=== PATIENT | female | born 1970 | race Caucasian/White ===

== ENCOUNTER 2017-11-17 00:30 | Emergency (ER) | payer BC, OTHER ==
[2017-11-17 00:37] VITALS: BP 120/77; PULSE 63; RESP 16; TEMP 97.9; O2SAT 97
[2017-11-17] MEDS ORDERED: FAMOTIDINE 20 MG TAB PO ONE (00:56)
[2017-11-17] MEDS ORDERED: diphenhydrAMINE 25 MG CAP PO ONE (00:56)
[2017-11-17] MEDS ORDERED: predniSONE 20 MG TAB PO ONE (00:57)
--- NOTE | 2017-11-17 01:01 | EDPHY ---
H & P Time Seen by Provider: 11/17/17 00:42 HPI/ROS: CHIEF COMPLAINT: Pruritic rash HISTORY OF PRESENT ILLNESS: 47-year-old female presents to the emergency department by private vehicle complaining of pruritic rash. She states that started last evening she thinks on her legs which is now since spread to her chest, abdomen and upper extremities. She denies difficulty breathing or swallowing. Denies chest pain. No known exposure to anything. She describes it is as extremely itchy. She did try taking 1 Benadryl when she went to sleep however she was concerned that her rash is getting worse. REVIEW OF SYSTEMS: Constitutional: No fever, no chills. Eyes: No double or blurry vision. ENT: No sore throat. Respiratory: No cough, no shortness of breath. Cardiac: No chest pain. Gastrointestinal: No abdominal pain, vomiting or diarrhea. Genitourinary: No dysuria. Musculoskeletal: No neck or back pain. Skin: As above Neurological: No headache. 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 Eyes: Pupils equal and round. Extraocular motions are all intact. ENT: Mouth: Mucous membranes moist. Respiratory: No wheezing, rhonchi, or rales, lungs are clear to auscultation. Cardiovascular: Regular rate and rhythm. Gastrointestinal: Abdomen is soft and nontender, no masses, no rebound or guarding, bowel sounds normal. Neurological: Alert and oriented x 3, cranial nerves II through XII grossly intact Skin: Erythematous macular papular rash to lower legs, right upper extremity, chest, abdomen and back. no vesicles. Blanches to the touch. Musculoskeletal: Nontender to palpate along the cervical, thoracic or lumbar spine. Neck is supple. Extremities: Full range of motion and no peripheral edema. Psychiatric: Patient is oriented X 3, there is no agitation. Constitutional: Initial Vital Signs Temperature (C) 36.6 C 11/17/17 00:35 Heart Rate 63 11/17/17 00:35 Respiratory Rate 16 11/17/17 00:35 Blood Pressure 120/77 11/17/17 00:35 O2 Sat (%) 97 11/17/17 00:35 O2 Delivery Mode Room Air Allergies/Adverse Reactions: No Known Allergies Allergy (Unverified 11/17/17 00:34) Home Medications: Medication Instructions Recorded Tez 100/50 (*) 11/17/17 predniSONE 60 mg PO DAILY #9 tab 11/17/17 Medical Decision Making ED Course/Re-evaluation: 47-year-old female presents to the emergency department with pruritic rash. Patient was given oral Benadryl, Pepcid, and prednisone. I do not think antibiotics are indicated. No evidence of cellulitis. I do not think this scabies. She was encouraged not to itch the rash. She will return if she develops difficulty breathing or swallowing or any other concerns. Differential Diagnosis: Including but not limited to contact dermatitis, cellulitis, zoster, urticaria Departure - Departure Disposition: Home, Routine, Self-Care Clinical Impression: Pruritic rash Condition: Good Instructions: Dermatitis (ED), Acute Rash (ED) Additional Instructions: Try not to itch the rash as this may cause further itching or possibly cause a rash to spread. Benadryl 50 mg every 6 hr as needed for itching, cautioned drowsiness. Pepcid 20 mg daily for itching. This medication is [id number]. Prednisone 60 mg daily for 3 additional days. Return to the emergency department if you develop difficulty breathing or swallowing, worsening rash or any other concerns. Referrals: Vishnu Barrientos MD [Primary Care Provider] - 2-3 days, if not improved Prescriptions: predniSONE 60 mg PO DAILY #9 tab
== END 2017-11-17 01:14 | disposition home or self-care (01) ==
DX: L29.9 Pruritus, unspecified (principal)

== ENCOUNTER 2018-07-20 10:21 | Emergency (ER) | payer OTHER ==
--- NOTE | 2018-07-20 10:34 | EDPHY ---
General Time Seen by Provider: 07/20/18 10:28 Narrative: CHIEF COMPLAINT: Leg pain and swelling HISTORY OF PRESENT ILLNESS: Patient presents with complaints of right leg pain and swelling. Symptoms started earlier this week but have drastically increased over the last 24 hr. Located in the right calf and ankle. The ankle swelling has increased the most over the past 24 hr. Painful palpation and movement. She was able to ride 5 hr yesterday, and she remains ambulatory. No chest pain or shortness of breath. No fever chills. She does have a contact dermatitis on the right calf but no complaints of warmth or feeling ill. 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 No use of estrogen or exogenous hormones. No other associated complaints or modifying factors. REVIEW OF SYSTEMS: 10 systems were reviewed and negative with the exception of the elements mentioned in the history of present illness. PCP: Dr. Monzon SPECIALISTS: None PAST MEDICAL HISTORY: Uncomplicated with orthopedic injuries PAST SURGICAL HISTORY: Ortho SOCIAL HISTORY: Nonsmoker. 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 Lives here independently with her spouse FAMILY HISTORY: Noncontributory EXAMINATION: General Appearance: Alert, no distress Head: normocephalic, atraumatic Eyes: Pupils equal and round, no conjunctival pallor or injection ENT, Mouth: Mucous membranes moist Neck: Normal inspection, supple, non-tender Respiratory: Lungs are clear to auscultation Cardiovascular: Regular rate and rhythm. No murmur. Symmetric DP PT pulses 2+ . Neurological: A&O, nonfocal, normal gait. Strength is symmetric in the ankles and great toe. Skin: Warm and dry. There is a linear contact dermatitis to the right posterolateral aspect of the calf matching supportive tape that she has been using. I do not appreciate any cellulitis, abscess, petechiae or purpura. Extremities: Mild tenderness of the right calf and soft tissues of the right ankle without any bony tenderness of the right ankle, right foot or right heel. Range of motion is symmetric. There is no palpable cord or direct evidence of DVT. Psychiatric: Mood and affect normal DIFFERENTIAL DIAGNOSES: Including but not limited to DVT, cellulitis, contact dermatitis, peripheral edema, sprain, strain, fracture MDM: 10:35 a.m. Right calf and ankle swelling and pain after recent flight to [facility]. She has no pain in the bony structures of the ankle, foot or calcaneus. She does have some erythema and tenderness to the right calf. No palpable cord. No evidence of cellulitis. There is a contact dermatitis that matches the shape of her supportive tape. Vital signs are within normal limits. She is not taking blood thinners. I have ordered ultrasound lower extremity. 11:20 a.m. Notified by radiologist Dr. Busby. DVT study is negative. 11:40 a.m. Patient re-evaluated. We discussed the uncertain etiology of the edema. She has no bony tenderness and no tenderness with ambulation, and does not feel that an x-ray would be of benefit. Nor do I. We discussed follow up with primary care physician and her established sports medicine physician for further imaging. We discussed topical steroid for the contact dermatitis. I do not appreciate any evidence of cellulitis, abscess, compartment syndrome. She is discharged home stable condition. SUPERVISION: This patient was independently evaluated without direct involvement of or examination by the attending physician. CONSULTATION: None - History Smoking Status: Never smoked - Objective Vital Signs: Initial Vital Signs Temperature (C) 97.7 F 07/20/18 10:22 Heart Rate 56 L 07/20/18 10:22 Respiratory Rate 16 07/20/18 10:22 Blood Pressure 124/82 H 07/20/18 10:22 O2 Sat (%) 98 07/20/18 10:22 O2 Delivery Mode Room Air Allergies/Adverse Reactions: No Known Allergies Allergy (Verified 07/20/18 10:21) Home Medications: Medication Instructions Recorded Triamcinolone 0.1% [Triamcinolone 1 mariama TP TID #1 cream 07/20/18 0.1% Cream] Departure - Departure Disposition: Home, Routine, Self-Care Clinical Impression: Peripheral edema Contact dermatitis Qualifiers: Contact dermatitis type: unspecified Contact dermatitis trigger: drugs in contact with skin Qualified Code(s): L25.1 - Unspecified contact dermatitis due to drugs in contact with skin Condition: Good Instructions: Contact Dermatitis (ED), Leg Edema (ED) Additional Instructions: 1. Rest, elevation and compression stockings 2. [id number] anti-inflammatories as needed 3. Topical triamcinolone to the affected area of contact dermatitis 4. Follow up primary care physician for further evaluation imaging as needed 5. ED precautions for worsening pain, numbness, tingling, weakness, fever Referrals: Silver,Shyanne [Primary Care Provider] - As per Instructions Prescriptions: Triamcinolone 0.1% [Triamcinolone 0.1% Cream] 1 mariama TP TID #1 cream
[2018-07-20 12:07] VITALS: BP 108/69
== END 2018-07-20 12:04 | disposition home or self-care (01) ==
DX: L25.1 Unspecified contact dermatitis due to drugs in contact with skin (principal); R60.0 Localized edema

== ENCOUNTER 2019-01-25 05:40 | Emergency (ER) | payer BC, OTHER ==
--- NOTE | 2019-01-25 06:05 | EDPHY ---
H & P Stated Complaint: UTI Source: Patient - Personal History LMP (Females 10-55): 1-7 Days Ago Current Tetanus Diphtheria and Acellular Pertussis (TDAP): Yes - Medical/Surgical History Hx Asthma: Yes Hx Chronic Respiratory Disease: No Hx Diabetes: No Hx Cardiac Disease: No Hx Renal Disease: No Hx Cirrhosis: No Hx Alcoholism: No Hx HIV/AIDS: No Hx Splenectomy or Spleen Trauma: No Other PMH: PMHx: asthma. PSHx: denies - Social History Smoking Status: Never smoked Time Seen by Provider: 01/25/19 06:05 HPI/ROS: HPI CHIEF COMPLAINT: Possible urinary tract infection. HISTORY OF PRESENT ILLNESS: Patient is a very pleasant 48-year-old female she is otherwise healthy, denies any significant medical history however reports 2 weeks ago she was seen in emergency room for fever and diagnosed with a urinary tract infection. The patient completed 10 days of Keflex. She presents to the emergency room early this morning concerning that she has another urinary tract infection she complains of urinary frequency. She also reports a fever of 102. She took Tylenol prior to arrival in arrives without any fever. She denies any abdominal pain or back pain, denies nausea vomiting or chest pain. States she does have urinary frequency without dysuria. No flank or back pain. Denies any other recent illness. Past Medical History: Denies significant medical history Past Surgical History: Denies significant surgical history Social History: Denies drugs alcohol tobacco. Family History: Noncontributory ROS REVIEW OF SYSTEMS: 10 Systems were reviewed and negative with the exception of the elements mentioned in the history of present illness. Exam Constitutional nontoxic no acute distress triage nursing summary reviewed, vital signs reviewed, awake/alert. Vital signs stable. Eyes normal conjunctivae and sclera, EOMI, PERRLA. HENT normal inspection, atraumatic, moist mucus membranes, no epistaxis, neck supple/ no meningismus, no raccoon eyes. Respiratory clear to auscultation bilaterally, normal breath sounds, no respiratory distress, no wheezing. Cardiovascular rate normal, regular rhythm, no murmur, no edema, distal pulses normal. Gastrointestinal soft, non-tender, no rebound, no guarding, normal bowel sounds, no distension, no pulsatile mass. Genitourinary no significant back pain on exam, no CVA tenderness. Musculoskeletal no midline vertebral tenderness, full range of motion, no calf swelling, no tenderness of extremities, no meningismus, good pulses, neurovascularly intact. Skin pink, warm, & dry, no rash, skin atraumatic. Neurologic awake, alert and oriented x 3, AAOx3, moves all 4 extremities equally, motor intact, sensory intact, CN II-XII intact, normal cerebellar, normal vision, normal speech. Psychiatric normal mood/affect. Heme/Lymph/Immune no lymphadenopathy. Differential Diagnosis: Includes but is not limited to in a particular order UTI, cystitis, pyelonephritis. Medical Decision Making: Plan for this patient check urinalysis and re- evaluate. Re-evaluation: Urinalysis reviewed concerning for urinary tract infection. Long discussion with the patient recommend IV establishment blood work, send urine culture, 2 g of Rocephin will be ordered. 0746: Plan for her ultrasound. Patient signed over at 7:[address] Colon, follow-up ultrasound re- evaluate patient. Patient updated agrees with this plan. (Kelton Villalobos) Constitutional: Initial Vital Signs Temperature (C) 37.4 C 01/25/19 05:44 Heart Rate 84 01/25/19 05:44 Respiratory Rate 16 01/25/19 05:44 Blood Pressure 162/95 H 01/25/19 05:44 O2 Sat (%) 97 01/25/19 05:44 O2 Delivery Mode Room Air Allergies/Adverse Reactions: No Known Allergies Allergy (Verified 01/25/19 05:43) Home Medications: Medication Instructions Recorded Advair 100/50 (*) 01/25/19 Keflex 01/25/19 Nitrofurantoin Monohyd/M-Cryst 100 mg PO BID #20 capsule 01/25/19 [Macrobid 100 mg Capsule] Nuvaring Vaginal Ring 01/25/19 Medical Decision Making Other Provider: I assumed care of this patient from Dr. Villalobos at change of shift. At that time she was scheduled to undergo an abdominal/pelvis ultrasound which was performed. I received the report of this ultrasound related to the patient. There was a question of an absent left ureteral jet on the ultrasound and a noncontrast CT was recommended. I discussed this with her and it was agreed that she would proceed with CT. CT scan was performed and normal with the exception of renal calculi (no obstruction), hepatic cysts, and possibly some small bowel fecalization and moderate constipation. Evidence of pyelonephritis was not seen. I am recommending that she continue with the antibiotics as prescribed and have close follow-up. We reviewed the danger signs that should prompt her to be re-evaluated. She is comfortable returning home. (Arely Colon) - Data Points Laboratory Results: Laboratory Results 01/25/19 06:51 01/25/19 06:51 Microbiology Results: MICROBIOLOGY 01/25/19 06:23 Urine,Clean Catch Urine Culture - Final Escherichia Coli Five Or More [place] Types Medications Given: Discontinued Medications Acetaminophen (Tylenol) 650 mg PO EDNOW ONE Stop: 01/25/19 08:12 Last Admin: 01/25/19 08:19 Dose: 650 mg Sodium Chloride (Ns) 1,000 mls @ 0 mls/hr IV EDNOW ONE; Wide Open PRN Reason: Protocol Stop: 01/25/19 06:45 Last Admin: 01/25/19 06:52 Dose: 1,000 mls Ceftriaxone Sodium 2 gm/ (Sodium Chloride) 50 mls @ 100 mls/hr IV EDNOW ONE PRN Reason: Protocol Stop: 01/25/19 07:14 Last Admin: 01/25/19 06:51 Dose: 50 mls Sodium Chloride (Ns) 1,000 mls @ 0 mls/hr IV ONCE ONE PRN Reason: Wide Open Stop: 01/25/19 07:26 Last Admin: 01/25/19 08:10 Dose: 1,000 mls Sodium Chloride (Ns) 1,000 mls @ 0 mls/hr IV EDNOW ONE; Wide Open PRN Reason: Protocol Stop: 01/25/19 09:24 Last Admin: 01/25/19 10:33 Dose: 1,000 mls Point of Care Test Results: Urine Collection Date 01/25/19 Collection Time 06:28 HCG Results Negative Departure - Departure Disposition: Home, Routine, Self-Care Clinical Impression: Urinary tract infection Qualifiers: Urinary tract infection type: acute cystitis Hematuria presence: with hematuria Qualified Code(s): N30.01 - Acute cystitis with hematuria Condition: Good Instructions: Urinary Tract Infection in Women (ED) Additional Instructions: 1. Recommend drinking lots of fluids and staying well hydrated. 2. Antibiotics as prescribed 3. Please return to the emergency room if you develop worsening symptoms includes fever, vomiting, back pain, not doing well. 4. I would rest for the next 3 days and drink lots of fluids 5. Your creatinine was slightly elevated. This is a measure of your kidney function. You should have this rechecked by her primary care physician. I recommend that you follow up with her primary care physician after completing the course of antibiotics. 6. We will notify you if the results of your urine culture indicate that you are on the wrong antibiotic. Referrals: Asia Alexandra MD [Primary Care Provider] - As per Instructions Prescriptions: Nitrofurantoin Monohyd/M-Cryst [Macrobid 100 mg Capsule] 100 mg PO BID #20 capsule
[2019-01-25] MEDS ORDERED: NS 1,000 ML IV ONE ×3 (06:44→09:23)
[2019-01-25] MEDS ORDERED: cefTRIAXone 1 GM/DEXTROSE 1 GM/50 ML BAG IV ONE (06:47)
[2019-01-25 06:58] LABS: PLATELET COUNT 287 10^3/uL (150-400)
[2019-01-25] MEDS ORDERED: ACETAMINOPHEN 325 MG TAB PO ONE (08:11)
[2019-01-25] MEDS ORDERED: IOPAMIDOL (ISOVUE-300) 100 ML BTL ONE (09:29)
[2019-01-25 10:34] VITALS: BP 125/68
== END 2019-01-25 11:21 | disposition home or self-care (01) ==
DX: N30.01 Acute cystitis with hematuria (principal); B96.20 Unspecified Escherichia coli [E. coli] as the cause of diseases classified elsewhere; N20.0 Calculus of kidney; E86.9 Volume depletion, unspecified
CPT/HCPCS: 96365; J0696; Q9967